=== PATIENT | female | born 1980 | race African-American/Black ===

== ENCOUNTER 2018-11-20 06:18 | Emergency (ER) | payer MEDICAID ==
[~2018-11-20] VITALS: Ht 162.6 cm; Wt 63.4 kg
[2018-11-20] MEDS ORDERED: LACTULOSE 20G/30ML UDC PO ONE (06:45)
[2018-11-20] MEDS ORDERED: KETOROLAC 30MG/ML VIAL IV STA (06:45)
[2018-11-20] MEDS ORDERED: MAGNESIUM CITRATE 300ML SOLUTION PO ONE (06:45)
[2018-11-20 08:11] LABS: BASOPHILS % 0.6 % (0.0-2.0); HEMATOCRIT. 38.4 % (36.0-48.0); HEMOGLOBIN. 12.7 g/dL (12.0-16.0); LYMPHOCYTES % 10.6 % (20.0-50.0); MEAN CORPUSCULAR HEMOGLOBIN 26.1 pg (28.0-32.0); MEAN CORPUSCULAR VOLUME 79.1 fL (81.0-99.0); MEAN PLATELET VOLUME 7.2 fl (7.4-10.4); MONOCYTES % 4.5 % (2.0-8.0); NEUTROPHILS % 84.3 % (40.0-76.0); PLATELET 403 x1000/uL (130-400); RED BLOOD CELL COUNT 4.85 mill/uL (4.2-5.4); RED CELL DISTRIBUTION WIDTH 21.7 % (11.6-14.6)
[2018-11-20 08:18] LABS: CHLORIDE 112 mEq/L (98-107)
[2018-11-20 08:32] LABS: HCG SCREEN NEGATIVE
[2018-11-20 08:47] LABS: CLARITY URINE CLOUDY (CLEAR); COLOR URINE YELLOW (YELLOW); KETONES URINE 1+ (NEGATIVE); LEUKOCYTE ESTERASE URINE NEGATIVE (NEGATIVE); NITRITE URINE NEGATIVE (NEGATIVE); OCCULT BLOOD URINE NEGATIVE (NEGATIVE); PROTEIN URINE NEGATIVE (NEGATIVE); SPECIFIC GRAVITY URINE 1.034 (1.005-1.030)
[2018-11-20 10:59] VITALS: BP 128/91
== END 2018-11-20 11:00 | disposition home or self-care (01) ==
LOC: ER 06:18
DX: K59.00 Constipation, unspecified (principal)
CPT/HCPCS: 36415; 74176; 80053; 81003; 81025; 83690; 84703; 85025; 85610; 96374; 99284; J1885

== ENCOUNTER 2019-02-24 20:45 | Emergency (ER) | payer MEDICARE ==
[~2019-02-24] VITALS: Ht 162.6 cm; Wt 77.0 kg
[2019-02-24] MEDS ORDERED: SODIUM CHLORIDE 0.9% 1,000 ML IV ONE (23:19)
[2019-02-24 23:52] LABS: EOSINOPHILS % 0.7 % (0.0-5.0); HEMOGLOBIN. 14.1 g/dL (12.0-16.0); LYMPHOCYTES % 26.8 % (20.0-50.0); MEAN CORPUSCULAR HEMOGLOBIN 30.1 pg (28.0-32.0); MEAN CORPUSCULAR VOLUME 87.7 fL (81.0-99.0); MEAN PLATELET VOLUME 7.3 fl (7.4-10.4); MONOCYTES % 8.7 % (2.0-8.0); NEUTROPHILS % 62.8 % (40.0-76.0); PLATELET 396 x1000/uL (130-400); RED BLOOD CELL COUNT 4.68 mill/uL (4.2-5.4); RED CELL DISTRIBUTION WIDTH 13.8 % (11.6-14.6)
[2019-02-24 23:57] LABS: CHLORIDE 105 mEq/L (98-107)
[2019-02-24 23:58] LABS: CLARITY URINE TURBID (CLEAR); COLOR URINE DARK YELLOW (YELLOW); KETONES URINE 2+ (NEGATIVE); LEUKOCYTE ESTERASE URINE 1+ (NEGATIVE); NITRITE URINE NEGATIVE (NEGATIVE); OCCULT BLOOD URINE NEGATIVE (NEGATIVE); PROTEIN URINE TRACE (NEGATIVE); SPECIFIC GRAVITY URINE 1.038 (1.005-1.030)
[2019-02-24 23:59] LABS: HCG SCREEN NEGATIVE
[2019-02-25] MEDS ORDERED: KETOROLAC 30MG/ML VIAL IV ONE (02:00)
[2019-02-25 02:54] VITALS: BP 118/69
== END 2019-02-25 02:55 | disposition home or self-care (01) ==
LOC: ER 20:45
DX: N39.0 Urinary tract infection, site not specified (principal)
CPT/HCPCS: 36415; 74018; 80053; 81003; 81025; 83690; 84703; 85025; 96374; 99284; J1885; J7030; Z7610